=== PATIENT | female | born 2000 | race Caucasian/White ===

== ENCOUNTER 2024-02-25 23:20 | Emergency (ER) | payer OTHER, SELFPAY ==
[2024-02-25 23:27] VITALS: BP 126/79; PULSE 96; RESP 18; TEMP 37.1; O2SAT 97; BMI 23.6
--- NOTE | 2024-02-26 00:06 | ED_ITS ---
HPI - General Adult General Chief complaint: Vaginal Bleeding Stated complaint: heavy vaginal bleeding, snt by PCP Time Seen by Provider: 02/25/24 23:53 Source: patient Mode of arrival: Ambulatory History of Present Illness HPI narrative: Patient is a 23-year-old female. Not on control. Is in day 2 of her menstrual cycle. States that for the past 2 days she has had very heavy menstrual cycles soaking through multiple pads an hour. States this is much more bleeding than what she normally has during her cycles. She states she was somewhat lightheaded when she stands up. No fevers. No urinary symptoms. No change in bowel habits. She contacted an online doctor at the [place] where she goes to school who advised that she come to the emergency department for evaluation. Related Data Allergies Allergy/AdvReac Type Severity Reaction Status Date / Time latex Allergy Difficulty Verified 02/25/24 23:27 Breathing Review of Systems Review of Systems ROS Unobtainable: All systems reviewed & are unremarkable except as noted in HPI and below Patient History Social History Smoking Status: Never smoker Smoking Status: Never smoker alcohol intake frequency: a few times a month Substance Use Type: does not use Exam Initial Vital Signs Initial Vital Signs: Vital Signs Temperature 98.8 F 02/25/24 23:27 Pulse Rate 96 H 02/25/24 23:27 Respiratory Rate 18 02/25/24 23:27 Blood Pressure 126/79 02/25/24 23:27 Pulse Oximetry 97 02/25/24 23:27 Oxygen Delivery Method Room Air 02/25/24 23:27 Const General: cooperative, comfortable and No ill appearing [facility] Head: normal to inspection and normocephalic Resp Effort & Inspection: normal respiratory effort Cardio Rate: regular rate GI Inspection: non-distended Neuro General: patient alert and patient awake Course Orders Ordered: ED Orders 02/25/24 23:53 Basic Metabolic Panel Stat Complete Blood Count AUTO DIFF Stat Test Serum,Qual Stat 02/26/24 00:07 US pelvic complete Stat Vital Signs Vital signs: Vital Signs - 8 hr 02/25/24 23:27 Temperature 98.8 F Pulse Rate 96 H Respiratory Rate 18 Blood Pressure 126/79 Pulse Oximetry 97 Oxygen Delivery Method Room Air Medical Decision Making Lab Data Lab results reviewed: Yes I reviewed the patient's lab results. 02/26/24 00:15 02/26/24 00:15 Labs: Lab Results 02/26/24 Range/Units 00:15 WBC 9.4 (4.5-11.0) X10^3/uL RBC 4.11 (4.0-5.2) X10^6/uL Hgb 12.5 (12.0-16.0) g/dL Hct 36.0 (36-46) % MCV 87.6 (80-100) fL MCH 30.3 (26-34) PG MCHC 34.6 (30-36) % RDW 13.1 (11.6-14.8) % Plt Count 308 (150-400) X10^3/uL Neut % (Auto) 57.5 (50-75) % Lymph % (Auto) 34.5 (25-40) % Geary % (Auto) 5.3 (3-14) % Eos % (Auto) 1.9 L (2-4) % Baso % (Auto) 0.8 (0-2) % Neut # (Auto) 5400 (3222-4497) /uL Lymph # (Auto) 3300 (1798-6461) /uL Geary # (Auto) 500 (0-900) /uL Eos # (Auto) 200 (0-450) /uL Baso # (Auto) 100 (0-100) /uL Sodium 135 L (137-145) mmol/L Potassium 3.8 (3.4-5.1) mmol/L Chloride 105 (98-107) mmol/L Carbon Dioxide 24 (22-32) mmol/L BUN 14 (7-17) mg/dL Creatinine 0.66 (0.52-1.04) mg/dL Estimated GFR > 60 (>60) mL/min BUN/Creatinine Ratio 21.2 (6-22) Glucose 97 (70-100) mg/dL Calcium 9.2 (8.4-10.2) mg/dL Serum , Qual Negative (Negative) Imaging Data US - IT PROJECT LEAD: Radiologist's Impression: PROCEDURE: US PELVIC COMPLETE INDICATIONS: Abnormal vaginal bleeding TECHNIQUE: Real-time scanning was performed of the pelvic organs, with image documentation. Additional endovaginal scanning was necessary due to incomplete visualization of the adnexal and endometrial structures by transabdominal scanning. COMPARISON: None. FINDINGS: Uterus: Uterus is anteverted and normal in size at 8.5 x 3.4 x 4.6 cm. The myometrium is homogeneous. The endometrium measures 9.8 mm combined thickness. Ovaries: The right ovary measures 2.5 x 6.0 x 2.5 cm, with a calculated ovarian volume of 228.0 cc. The left ovary measures 4.6 x 4.7 x 4.7 cm, with a calculated ovarian volume of 53.5 cc. The ovaries have a normal sonographic appearance. 3.7 cm left ovarian complex cyst No adnexal masses are seen. Other: No pathologic free abdominal or pelvic fluid. IMPRESSION: Left ovarian complex cyst, 3.7 cm. Consider either 6 week follow-up ultrasound or MRI contrast evaluation. Otherwise unremarkable. Normal endometrium. MDM Narrative Medical decision making narrative: Patient was not tachycardic. Not anemic. Benign exam. Ultrasound shows would be expected and someone on day 2 of her menstrual cycle. She does have a left ovarian cyst. No indication for admission to hospital for blood transfusion. We did discuss potentially starting her on a control to help with the bleeding however she declined. Will discharge patient home with return precautions. She expressed understanding and agreement with plan. Discharge Plan Departure Patient Disposition: Home Clinical Impression: Vaginal bleeding Instructions: DI for Vaginal Bleeding Activity Restrictions/Additional Instructions: I do recommend that you continue to keep all of your scheduled medical appointments. Return to the emergency department for new or worsening symptoms. Referrals: Miscellaneous,[facility] [Primary Care Provider] - Stand Alone Forms: Patient Portal/API
[2024-02-26 00:33] LABS: Add Manual Diff / Slide Review NO; Basophils Absolute Auto 100 /uL (0-100); Basophils Percent Auto 0.8 % (0-2); Eosinophils Absolute Auto 200 /uL (0-450); Eosinophils Percent Auto 1.9 % (2-4); Hemoglobin 12.5 g/dL (12.0-16.0); Lymphocytes Absolute Auto 3300 /uL (1100-4500); Lymphocytes Percent Auto 34.5 % (25-40); Mean Corpuscular HGB Conc 34.6 % (30-36); Mean Corpuscular Hemoglobin 30.3 PG (26-34); Mean Corpuscular Volume 87.6 fL (80-100); Monocytes Absolute Auto 500 /uL (0-900); Monocytes Percent Auto 5.3 % (3-14); Neutrophils Absolute Auto 5400 /uL (1500-7000); Neutrophils Percent Auto 57.5 % (50-75); Platelet Count 308 X10^3/uL (150-400); Red Blood Cell Count 4.11 X10^6/uL (4.0-5.2); Red Cell Distribution Width 13.1 % (11.6-14.8); White Blood Cell Count 9.4 X10^3/uL (4.5-11.0)
[2024-02-26 00:40] LABS: BUN Creatinine Ratio 21.2 (6-22); Blood Urea Nitrogen 14 mg/dL (7-17); Calcium 9.2 mg/dL (8.4-10.2); Carbon Dioxide 24 mmol/L (22-32); Chloride 105 mmol/L (98-107); Estimated Glomerular Filt Rate > 60 mL/min (>60); Glucose 97 mg/dL (70-100); HEMOLYSIS < 15 (0-50); Potassium 3.8 mmol/L (3.4-5.1); Sodium 135 mmol/L (137-145)
[2024-02-26 00:43] LABS: Pregnancy Test Serum,Qual Negative (Negative)
[2024-02-26 02:21] VITALS: BP 115/62; PULSE 69; RESP 16; O2SAT 95
== END 2024-02-26 02:32 | disposition home or self-care (01) ==
PROVIDERS: Emergency Provider Emergency Medicine
DX: N92.0 Excessive and frequent menstruation with regular cycle (principal); N83.202 Unspecified ovarian cyst, left side
CPT/HCPCS: 36415; 76856; 80048; 84703; 85025; 99281; 99284